=== PATIENT | female | born 1965 | race Caucasian/White ===

== ENCOUNTER 2017-05-30 09:44 | Day surgery (SDC) | payer OTHER ==
[2017-05-29 12:05] VITALS: BMI 33.6
[~2017-05-30] VITALS: Ht 162.6 cm; Wt 82.3 kg
[2017-05-30] VITALS (13 sets, daily range): BP systolic 132–164; BP diastolic 73–85; PULSE 15–68; RESP 13–24; Ht 162.6 cm; Wt 82.3 kg
[~2017-05-30 09:44] MED LIST: CEFAZOLIN 1 GM/50 ML (PMX) 50 ML IVPB SCH; SOD CHLORIDE 0.9% 1,000 ML IV SCH; SUCCINYLCHOLINE CHLORIDE 100 MG/5 ML SYG IV ONE
[2017-05-30] MEDS ORDERED: BUPIVACAINE 0.25% (MPF) 30 ML INJ ONE ×2 (12:33→13:10)
[2017-05-30] MEDS ORDERED: DIPHENHYDRAMINE 50 MG INJ IV PRN (13:00)
[2017-05-30] MEDS ORDERED: MEPERIDINE 25 MG INJ IV PRN (13:00)
[2017-05-30] MEDS ORDERED: ONDANSETRON 4 MG INJ IV PRN (13:00)
[2017-05-30] MEDS ORDERED: METOCLOPRAMIDE 10 MG INJ IV PRN (13:00)
[2017-05-30] MEDS ORDERED: FENTAnyl 50 MCG/ML VIAL IV PRN ×2 (13:00)
[2017-05-30] MEDS ORDERED: HYDROmorphONE (0.2 MG/ML) 10ML SYG IV PRN ×3 (13:00)
[2017-05-30] MEDS ORDERED: FENTAnyl 50 MCG/ML VIAL ONE (13:09)
[2017-05-30] MEDS ORDERED: SUCCINYLCHOLINE CHLORIDE 100 MG/5 ML SYG IV ONE (13:11)
[2017-05-30] MEDS ORDERED: ROCURONIUM 50 MG INJ ONE (13:28)
[2017-05-30] MEDS ORDERED: ROPIVACAINE 0.5 % 30 ML VIAL ONE (13:28)
[2017-05-30] MEDS ORDERED: LIDOCAINE 2% (SDV) 5 ML INJ ONE (13:28)
[2017-05-30] MEDS ORDERED: CEFAZOLIN 1 GM INJ ONE (13:28)
[2017-05-30] MEDS ORDERED: PROPOFOL 20 ML ONE (13:28)
[2017-05-30] MEDS ORDERED: SUGAMMADEX SODIUM 200 MG/2 ML VIAL IV ONE (13:29)
--- NOTE | 2017-05-30 13:51 | OPR ---
Date/Time of Note Date/Time of Note DATE: 05/30/17 TIME: 13:48 Operative Report Procedure Date: May 30, 2017 Preoperative Diagnosis symptomatic gallstones Postoperative Diagnosis same Operation/Procedure Performed 1. laparoscopic cholecystectomy 2. therapeutic injection of subcutaneous local anesthesia Surgeon see signature line Metallurgical Tester none Anesthesia Type: general Estimated Blood Loss: 0 - 10 ml's Transfusion none Specimen gallbladder Grafts/Implants none Complications none Pt Condition Post Procedure: stable Indications This is a 51-year-old female with symptomatic gallstones. She requests surgical excision of her gallbladder. Risks alternatives benefits and percent were discussed the patient. Patient expressed understanding consents to the operation. Procedure Description Patient taken to the OR and prepped and draped in usual sterile fashion. Surgical timeout was performed. IV antibiotics given. Supraumbilical midline incision was made with a 15 blade. Dissection Carrs carried into the fascia. 0 Vicryl stay sutures were placed on each side of the fascia from the midline. Midline is opened in a blueness on trocar is introduced. Pneumoperitoneum is established. Midepigastric 12 mm optical trocar was placed under direct visualization right upper quadrant upper flank 5 mm optical trochars were placed under direct visualization. Upon initial inspection there are some adhesions were taken down bluntly. The gallbladder was retracted in a lateral our direction. Careful dissection with cautery was performed laterally. The cystic duct and artery were identified. Due to the intrahepatic nature dome down approach was performed to mobilize cystic duct and cystic artery. Due to thickened tissues is 35 mm echelon vascular stapler was used to divide the cystic duct and cystic artery. The staple line was reinforced with clips. The gallbladder was taken of the gallbladder bed and was retrieved using Endo Catch bag. The surgical site was hemostatic. Ports removed under direct visualization. 0 Vicryl [id number] suture was placed to closed the midline fascial defect. The skin was closed using skin sammie. Therapeutic subcutaneous local anesthesia was injected throughout the incision sites. Dressings were applied. Pretty VELASQUEZ May 30, 2017 13:51
[2017-05-30] MEDS ORDERED: ONDANSETRON 4 MG INJ ONE (13:58)
[2017-05-30] MEDS ORDERED: HYDROCODONE/APAP (5/325) TAB PO ONE (14:00)
== END 2017-05-30 18:00 | disposition home or self-care (01) ==
LOC: SDS 09:44
PROVIDERS: ATTEND Surgery
DX: K80.10 Calculus of gallbladder with chronic cholecystitis without obstruction (principal); I10 Essential (primary) hypertension; E78.5 Hyperlipidemia, unspecified
CPT/HCPCS: 47562; 84703; 88304; J0690; J2175; J2405; J2795; J3010; Z7512; Z7610